=== PATIENT | male | born 1985 | race Caucasian/White ===

== ENCOUNTER 2021-07-01 20:18 | Emergency (ER) | payer BC ==
[~2021-07-01] VITALS: Ht 188 cm; Wt 60.7 kg
[2021-07-01 23:54] VITALS: BP 134/76
[2021-07-02] MEDS ORDERED: cephalexin 250mg capsule PO ONE (00:50)
[2021-07-02] MEDS ORDERED: CEPH-585 PO (00:51)
== END 2021-07-02 01:53 | disposition home or self-care (01) ==
LOC: ER 20:18
DX: I89.1 Lymphangitis (principal); M79.602 Pain in left arm; Z79.2 Long term (current) use of antibiotics
CPT/HCPCS: 99283

== ENCOUNTER 2021-07-07 17:47 | Emergency (ER) | payer BC ==
[~2021-07-07] VITALS: Ht 188 cm; Wt 79.5 kg
[~2021-07-07 17:47] MED LIST: CEPH-585 PO
[2021-07-07] MEDS ORDERED: DOXY100C76 PO (19:09)
== END 2021-07-07 19:37 | disposition home or self-care (01) ==
LOC: ER 17:48
DX: I89.1 Lymphangitis (principal)
CPT/HCPCS: 99283